=== PATIENT | female | born 1985 | race Caucasian/White ===

== ENCOUNTER 2019-07-30 14:36 | Inpatient (IN) | payer OTHER ==
[2019-07-30] VITALS (7 sets, daily range): BP systolic 104–129; BP diastolic 63–71
[~2019-07-30] VITALS: Ht 165.1 cm; Wt 105.2 kg
[2019-07-30] MEDS: IV RINGERS,LACTATED 1000ML 1,000 ML IV SCH (14:35)
[~2019-07-30 14:36] MED LIST: IBUP-1060 PO; PREN1TAB58 PO
[2019-07-30] MEDS ORDERED: SUCCINYLCHOLINE 200 MG/10 ML VIAL. ONE (14:42)
[2019-07-30] MEDS ORDERED: ROCURONIUM 50 MG/5 ML VIAL. ONE (14:43)
[2019-07-30] MEDS ORDERED: fentaNYL PF VIAL 100 MCG/2 ML VIAL ONE (14:43)
[2019-07-30] MEDS ORDERED: FAMOTIDINE 20 MG/2 ML VIAL ONE (14:44)
[2019-07-30] MEDS ORDERED: PROPOFOL 10 MG/ML (20ML) VIAL. IV ONE (14:44)
[2019-07-30] MEDS ORDERED: LIDOCAINE 2% PF 5 ML VIAL. ONE ×2 (14:44→16:21)
[2019-07-30] MEDS ORDERED: DESFLURANE 61 TO 120 MINUTES IH ONE (14:44)
[2019-07-30] MEDS ORDERED: KETOROLAC 30 MG/ML VIAL. ONE (14:44)
[2019-07-30] MEDS ORDERED: DEXAMETHASONE SOD PHOS 20 MG/5 ML VIAL. ONE (14:44)
[2019-07-30] MEDS ORDERED: ONDANSETRON PF 4 MG/2 ML VIAL. ONE (14:46)
--- NOTE | 2019-07-30 14:49 | PDOC2 ---
CONSULT Date of Consult Date of Consult DATE: 07/30/19 TIME: 14:39 Reason for Consult Reason for Consult: small bowel obstruction Referring Physician Referring Physician: Dr Ace Identification/Chief Complaint Chief Complaint abdominal pain, nausea, vomiting Source Source: Chart review, Patient History of Present Illness Reason for Visit: Daxa is a 33 yo obese female who has had abdominal pain, nausea and vomiting for the last few days. She has had a l/s cholecystectomy and umbilical hernia repair in the past. CT done at the [facility] ED showed an umbilical hernia creating a small bowel obstruction Past Medical History Pulmonary: Asthma GI: GERD Renal/: No pertinent hx Past Surgical History Past Surgical History: Cholecystectomy, Hernia Repair Current Medications Current Medications Active Scripts Active Ibuprofen 800 Mg Tablet 800 Mg PO PRN Q8HRS PRN Reported Vitamins ( Vits W-Ca,Fe,Fa(<1MG)) 1 Each Tablet 1 Tab PO DAILY Allergies Allergies: Coded Allergies: No Known Drug Allergies (Unverified , 06/06/14) ROS Review of System negative with exception of present complaints Physical Exam General: Alert, No acute distress HEENT: Atraumatic, Other (poor dental repair, epistaxis from attempted NG placement) Lungs: Normal air movement Heart: Regular rate Abdomen: Other (obese, soft, there is a tender, non reducible fullness at and just above the umbilicus, well healed l/s scars from elias (remote)) Extremities: No clubbing Skin: Other Labs Labs from [facility] Images Images CT done in [facility] ED is reviewed Assessment/Plan Assessment/Plan small bowel obstruction 2/2 incarcerated recurrent umbilical hernia to OR for repair, release SBO, possible SBR discussed risks of procedure with Dominga including but not limited to bleeding, infection, recurrence, anastomotic leak, umbilectomy\ she will proceed Thanks for consult SHOAIB SOLIMAN MD Jul 30, 2019 14:49
[2019-07-30] MEDS ORDERED: HYDROmorphone 2 MG/ML VIAL IV PRN ×2 (15:00→16:45)
[2019-07-30] MEDS ORDERED: ceFAZolin SODIUM 3 GM in IV DEXTROSE 5% 100ML 100 ML IV PRN (15:00)
[2019-07-30] MEDS ORDERED: fentaNYL PF VIAL 100 MCG/2 ML VIAL IV PRN (15:00)
[2019-07-30] MEDS ORDERED: ONDANSETRON PF 4 MG/2 ML VIAL. IVP PRN ×2 (15:00→16:45)
[2019-07-30] MEDS ORDERED: MORPHINE SULFATE 2 MG/ML VIAL. IV PRN (15:00)
[2019-07-30] MEDS ORDERED: PROCHLORPERAZINE 10 MG/2 ML VIAL. IV PRN (15:00)
[2019-07-30] MEDS ORDERED: diphenhydrAMINE 50 MG/ML VIAL IV PRN (15:00)
[2019-07-30] MEDS ORDERED: ceFAZolin SODIUM IV Push 1 GM VIAL. IVP ONE ×3 (15:07)
[2019-07-30] MEDS ORDERED: METOPROLOL TARTRATE 5 MG/5 ML VIAL. IVP ONE (15:35)
[2019-07-30] MEDS ORDERED: GLYCOPYRROLATE 1 MG/5 ML VIAL. ONE (15:38)
[2019-07-30] MEDS ORDERED: NEOSTIGMINE METHYLSULFATE 5 MG/5 ML SYRINGE. ONE (15:38)
[2019-07-30] MEDS ORDERED: IV NORMAL SALINE 1000ML BAG 1,000 ML IV SCH (16:39)
[2019-07-30] MEDS: POTASSIUM CL 20MEQ-0.45% NACL 1,000 ML IV SCH (16:39)
[2019-07-30] MEDS: fentaNYL PF VIAL 100 MCG/2 ML VIAL IV PRN ×2 (16:45→16:56)
[2019-07-30] MEDS ORDERED: BENZOCAINE/MENTHOL LOZENGE. PO PRN (16:45)
[2019-07-30] MEDS ORDERED: ENOXAPARIN 40 MG/0.4 ML SYRINGE. SQ SCH (16:45)
[2019-07-30] MEDS ORDERED: NALOXONE 0.4 MG/ML VIAL. IV PRN (16:45)
[2019-07-30] MEDS ORDERED: 0.9 % SODIUM CHLORIDE 10 ML DISP.SYRIN. IV PRN (16:45)
--- NOTE | 2019-07-30 16:54 | PDOC ---
BRIEF OPERATIVE NOTE Date: Jul 30, 2019 Pre-Op Diagnosis SBO 2/2 incarcerated recurrent VIH Post-Op Diagnosis same Procedure Performed primary repair of recurrent VIH, partial omentectomy Surgeon Terell Metal Expediter Aristides BECKWITH Anesthesia Type: General Blood Loss 00cc IV Fluid 1000cc Urine Output 100cc Specimens Obtained hernia sack and incarcerated contents Findings multi-loculated hernia sack with omentum, viable SB Complications none Operative Note Wk # [id number] SHOAIB SOLIMAN MD Jul 30, 2019 16:54
--- NOTE | 2019-07-30 17:14 | OP ---
DATE OF SURGERY: 07/30/2019 PREOPERATIVE DIAGNOSIS: Small bowel obstruction secondary to incarcerated recurrent ventral incisional hernia. POSTOPERATIVE DIAGNOSIS: Small bowel obstruction secondary to incarcerated recurrent ventral incisional hernia. PROCEDURE: Primary repair of recurrent ventral incisional hernia, partial omentectomy. SURGEON: Nathan Soliman MD EXTRACTOR PLANT OPERATOR: AMENA Holland ANESTHESIA: General endotracheal. ESTIMATED BLOOD LOSS: 100 mL. INTRAVENOUS FLUIDS: 1000 mL. URINE OUTPUT: 100 mL. INDICATIONS: The patient is a 33-year-old obese female with previous cholecystectomy and repair of a hernia just above her umbilicus. She had acute pain and fullness in the area and scan showed small bowel obstruction secondary to involvement with this hernia. She is brought for exploration and repair. OPERATIVE FINDINGS: A multiloculated hernia sac was present containing incarcerated omentum. The bowel had reduced spontaneously. When run from ileocecal valve proximally, the bowel appeared slightly distended, but viable. DESCRIPTION OF PROCEDURE: The patient brought to the operating suite, given a general endotracheal anesthetic. Bashir catheter placed to dependent drainage. Abdomen prepped and draped in usual sterile fashion. A vertical incision was started over the area of fullness and extending below the umbilicus to include the umbilicus and was then excised. The hernia sac was mobilized circumferentially and carefully opened. We set about reducing the incarcerated contents by resection of the omentum or cautery division of the adhesions, allowing the remaining omentum to reduce back into the abdomen. Small bowel was run and found to be viable. The hernia sac was excised circumferentially. The fascial defect was closed in running fashion using #1 looped PDS tied in the middle. A second row of 0 Vicryl was used to reinforce the repair. Correct sponge count had been obtained prior to closing the incision. A 19-English round Nicola drain was brought through a lateral stab wound, sewn to the skin with a silk stitch and left in the subcutaneous space for postoperative drainage. Incision closed with a subcuticular 4-0 Monocryl. Sterile dressing applied. Abdominal binder placed. The patient awakened and recovered in OR #3 due to pending results of her COVID-19 testing. NATHAN SOLIMAN MD DR: SAM/sebastian JOB#: [id number] / [id number] AICHA Gann MD
[2019-07-30] MEDS: PHENOL ORAL SPRAY 177ML BOTTLE. PO PRN (18:10)
[2019-07-30] MEDS ORDERED: BUDE10.26 INH (18:28)
[2019-07-30] MEDS ORDERED: LORA-627 PO (18:28)
[2019-07-31] MEDS: IV RINGERS,LACTATED 1000ML 1,000 ML IV SCH (01:00)
[2019-07-31] MEDS: POTASSIUM CL 20MEQ-0.45% NACL 1,000 ML IV SCH ×3 (02:39→23:03)
[2019-07-31 03:00] VITALS: BP 120/70
[2019-07-31 07:00] VITALS: BP 129/71
[2019-07-31] MEDS: ENOXAPARIN 40 MG/0.4 ML SYRINGE. SQ SCH (08:25)
[2019-07-31 11:00] VITALS: BP 148/77
--- NOTE | 2019-07-31 12:16 | PDOC ---
SURGICAL PROGRESS NOTE Subjective adequate pain control asking for liquids Vital Signs Vital Signs Date Time Temp Pulse Resp B/P (MAP) Pulse Ox O2 Delivery O2 Flow Rate FiO2 07/31/19 11:00 98.2 80 16 148/77 (100) 96 Room Air 98.2 07/31/19 08:00 2.0 I&O Intake and Output 07/31/19 07:00 Intake Total 1100 ml Output Total 1475 ml Balance -375 ml Intake Oral 0 ml IV Total 1100 ml Output Urine Total 1375 ml Estimated Blood Loss 100 ml PATIENT HAS A CAMARA: No General: Alert HEENT: Other (NG with bilious return) Abdomen: Soft Assessment/Plan POD 1 ambulate NG trial in AM Justicifation of Admission Dx: Justifications for Admission: Justification of Admission Dx: Comment: (incarcerated umbilical hernia) SHOAIB SOLIMAN MD Jul 31, 2019 12:16
--- NOTE | 2019-07-31 12:38 | HP ---
ADMIT DATE: 07/31/2019 CHIEF COMPLAINT: Incarcerated hernia. HISTORY OF PRESENT ILLNESS: The patient is a pleasant middle-aged female who had an incarcerated hernia last night. She was taken emergently for surgery this morning. She is being examined in the medical floor where she has an NG to suction. PAST MEDICAL HISTORY: Allergic rhinitis. ALLERGIES: None. FAMILY HISTORY: Diabetes. SOCIAL HISTORY: She does not drink, smoke or take drugs. MEDICATIONS: Reviewed. Please refer to the MRAD. REVIEW OF SYSTEMS: GENERAL: No history of weight change, weakness or fevers. SKIN: No bruising, hair changes or rashes. EYES: No blurred, double or loss of vision. NOSE AND THROAT: No history of nosebleeds, hoarseness or sore throat. HEART: No history of palpitations, chest pain or shortness of breath on exertion. LUNGS: Denies cough, hemoptysis, wheezing or shortness of breath. GASTROINTESTINAL: She complains of abdominal discomfort. GENITOURINARY: No history of frequency, urgency, hesitancy or nocturia. NEUROLOGIC: Denies history of numbness, tingling, tremor or weakness. PSYCHIATRIC: No history of panic, anxiety or depression. ENDOCRINE: No history of heat or cold intolerance, polyuria or polydipsia. EXTREMITIES: Denies muscle weakness, joint pain, pain on walking or stiffness. PHYSICAL EXAMINATION: PHYSICAL EXAMINATION: VITALS: Within normal limits and are stable. GENERAL: No apparent distress. Alert and oriented. HEENT: She has an NG to suction. EYES: Extraocular muscles are intact, pupils are equally round and reactive to light and accommodation. MUSCULOSKELETAL: Well developed, well nourished, good range of motion. ENDOCRINE: No thyromegaly was palpated. LYMPHATICS: No cervical chain or axillary nodes were noted. HEMATOPOIETIC: No bruising. NECK: Supple, no JVD, no thyromegaly was noted. LUNGS: Clear to auscultation in all lung marmolejo without rhonchi or wheezing. HEART: RRR, S1, S2 present. Peripheral pulses intact, no obvious murmurs were noted. GASTROINTESTINAL: She has clean, dry and intact dressings. EXTREMITIES: Without any cyanosis, clubbing, or edema. Pedal pulses intact, Homans sign is negative. NEUROLOGIC: Normal speech, normal tone. A and O x 3, moves all extremities, no obvious focal deficits. PSYCHIATRIC: Normal affect, normal mood. Stable. SKIN: No ulcerations or rashes, good skin turgor, no jaundice. VASCULAR: Good capillary refill, neurovascular bundle appears to be intact. LABORATORY DATA: Pending. ASSESSMENT AND PLAN: Postoperative day 1, incarcerated umbilical hernia repair. We will check a CBC, BMP. Home meds, deep venous thrombosis prophylaxis. Full code, wound care. I appreciate Dr. Figueredo's rapid intervention. LETTY CHERRY DO DR: BOB/sebastian JOB#: [id number] / [id number]
[2019-07-31] MEDS: PHENOL ORAL SPRAY 177ML BOTTLE. PO PRN (14:02)
[2019-07-31 15:00] VITALS: BP 127/81
[2019-07-31 19:00] VITALS: BP 155/93
[2019-07-31 23:00] VITALS: BP 154/97
[2019-08-01 03:00] VITALS: BP 177/99
[2019-08-01 05:20] LABS: BASO # 0.1 x10^3/uL (0.0-0.2); BASO % 1 % (0-3); EOS # 0.1 x10^3/uL (0.0-0.7); EOS % 1 % (0-3); HEMOGLOBIN 13.9 g/dL (12.0-15.5); LYMPH # 1.9 x10^3/uL (1.0-4.8); LYMPH % 20 % (24-48); MEAN CORPUSCULAR HEMOGLOBIN 28 pg (25-35); MEAN CORPUSCULAR HGB CONC 34 g/dL (31-37); MEAN CORPUSCULAR VOLUME 82 fL (79-100); MONO # 1.1 x10^3/uL (0.0-1.1); MONO % 12 % (0-9); NEUT # 6.7 x10^3/uL (1.8-7.7); NEUT % 68 % (31-73); PLATELET COUNT 298 x10^3/uL (140-400); RED BLOOD COUNT 4.99 x10^6/uL (3.50-5.40); WHITE BLOOD COUNT 9.9 x10^3/uL (4.0-11.0)
[2019-08-01 05:43] LABS: CALCIUM 8.1 mg/dL (8.5-10.1); CREATININE 0.6 mg/dL (0.6-1.0); GFR 113.8; POTASSIUM 3.5 mmol/L (3.5-5.1)
[2019-08-01 07:08] VITALS: BP 181/98
--- NOTE | 2019-08-01 08:14 | PDOC ---
PROGRESS NOTES Chief Complaint Chief Complaint A/P: SBO Allergic rhinitis Moderate persistent asthma - on symbicort and prn albuterol Obesity Leukocytosis Hyponatremia Incarcerated periumbilical abdominal wall hernia containing a loop of the distal ileum Nonobstructing right renal calculi. Mild right renal hydronephrosis due to ureteropelvic junction obstruction, stable to prior imaging. History of Present Illness History of Present Illness Ms Trejo is a 33 yo F w/ PMHx obesity who came to [facility] ED on 07/29 c/o abdominal pain, nausea and vomiting for the last few days. She has had a l/s cholecystectomy and umbilical hernia repair in the past. CT done at the [facility] ED showed an umbilical hernia creating a small bowel obstruction. 07/30: To OR for Primary repair of recurrent ventral incisional hernia, partial omentectomy. Afebrile overnight. Advance to clears this morning. No BM as of yet she is a little short of breath and wheezing. Improved with her as needed albuterol. Vitals Vitals Vital Signs Date Time Temp Pulse Resp B/P (MAP) Pulse Ox O2 Delivery O2 Flow Rate FiO2 08/01/19 07:08 97.7 90 16 181/98 (125) 96 Room Air 97.7 07/31/19 20:00 2.0 Physical Exam General: Alert Heart: Regular rate Abdomen: Soft Extremities: No clubbing Skin: Other Labs LABS Laboratory Tests Test 08/01/19 04:30 White Blood Count 9.9 x10^3/uL (4.0-11.0) Red Blood Count 4.99 x10^6/uL (3.50-5.40) Hemoglobin 13.9 g/dL (12.0-15.5) Hematocrit 41.0 % (36.0-47.0) Mean Corpuscular Volume 82 fL (79-100) Mean Corpuscular Hemoglobin 28 pg (25-35) Mean Corpuscular Hemoglobin Concent 34 g/dL (31-37) Red Cell Distribution Width 14.0 % (11.5-14.5) Platelet Count 298 x10^3/uL (140-400) Neutrophils (%) (Auto) 68 % (31-73) Lymphocytes (%) (Auto) 20 % (24-48) Monocytes (%) (Auto) 12 % (0-9) Eosinophils (%) (Auto) 1 % (0-3) Basophils (%) (Auto) 1 % (0-3) Neutrophils # (Auto) 6.7 x10^3/uL (1.8-7.7) Lymphocytes # (Auto) 1.9 x10^3/uL (1.0-4.8) Monocytes # (Auto) 1.1 x10^3/uL (0.0-1.1) Eosinophils # (Auto) 0.1 x10^3/uL (0.0-0.7) Basophils # (Auto) 0.1 x10^3/uL (0.0-0.2) Sodium Level 137 mmol/L (136-145) Potassium Level 3.5 mmol/L (3.5-5.1) Chloride Level 99 mmol/L (98-107) Carbon Dioxide Level 28 mmol/L (21-32) Anion Gap 10 (6-14) Blood Urea Nitrogen 21 mg/dL (7-20) Creatinine 0.6 mg/dL (0.6-1.0) Estimated GFR (Cockcroft-Gault) 113.8 Glucose Level 85 mg/dL (70-99) Calcium Level 8.1 mg/dL (8.5-10.1) Comment Review of Relevant I have reviewed the following items nusrat (where applicable) has been applied. Labs Laboratory Tests Test 08/01/19 04:30 White Blood Count 9.9 x10^3/uL (4.0-11.0) Red Blood Count 4.99 x10^6/uL (3.50-5.40) Hemoglobin 13.9 g/dL (12.0-15.5) Hematocrit 41.0 % (36.0-47.0) Mean Corpuscular Volume 82 fL (79-100) Mean Corpuscular Hemoglobin 28 pg (25-35) Mean Corpuscular Hemoglobin Concent 34 g/dL (31-37) Red Cell Distribution Width 14.0 % (11.5-14.5) Platelet Count 298 x10^3/uL (140-400) Neutrophils (%) (Auto) 68 % (31-73) Lymphocytes (%) (Auto) 20 % (24-48) Monocytes (%) (Auto) 12 % (0-9) Eosinophils (%) (Auto) 1 % (0-3) Basophils (%) (Auto) 1 % (0-3) Neutrophils # (Auto) 6.7 x10^3/uL (1.8-7.7) Lymphocytes # (Auto) 1.9 x10^3/uL (1.0-4.8) Monocytes # (Auto) 1.1 x10^3/uL (0.0-1.1) Eosinophils # (Auto) 0.1 x10^3/uL (0.0-0.7) Basophils # (Auto) 0.1 x10^3/uL (0.0-0.2) Sodium Level 137 mmol/L (136-145) Potassium Level 3.5 mmol/L (3.5-5.1) Chloride Level 99 mmol/L (98-107) Carbon Dioxide Level 28 mmol/L (21-32) Anion Gap 10 (6-14) Blood Urea Nitrogen 21 mg/dL (7-20) Creatinine 0.6 mg/dL (0.6-1.0) Estimated GFR (Cockcroft-Gault) 113.8 Glucose Level 85 mg/dL (70-99) Calcium Level 8.1 mg/dL (8.5-10.1) Laboratory Tests Test 08/01/19 04:30 White Blood Count 9.9 x10^3/uL (4.0-11.0) Red Blood Count 4.99 x10^6/uL (3.50-5.40) Hemoglobin 13.9 g/dL (12.0-15.5) Hematocrit 41.0 % (36.0-47.0) Mean Corpuscular Volume 82 fL (79-100) Mean Corpuscular Hemoglobin 28 pg (25-35) Mean Corpuscular Hemoglobin Concent 34 g/dL (31-37) Red Cell Distribution Width 14.0 % (11.5-14.5) Platelet Count 298 x10^3/uL (140-400) Neutrophils (%) (Auto) 68 % (31-73) Lymphocytes (%) (Auto) 20 % (24-48) Monocytes (%) (Auto) 12 % (0-9) Eosinophils (%) (Auto) 1 % (0-3) Basophils (%) (Auto) 1 % (0-3) Neutrophils # (Auto) 6.7 x10^3/uL (1.8-7.7) Lymphocytes # (Auto) 1.9 x10^3/uL (1.0-4.8) Monocytes # (Auto) 1.1 x10^3/uL (0.0-1.1) Eosinophils # (Auto) 0.1 x10^3/uL (0.0-0.7) Basophils # (Auto) 0.1 x10^3/uL (0.0-0.2) Sodium Level 137 mmol/L (136-145) Potassium Level 3.5 mmol/L (3.5-5.1) Chloride Level 99 mmol/L (98-107) Carbon Dioxide Level 28 mmol/L (21-32) Anion Gap 10 (6-14) Blood Urea Nitrogen 21 mg/dL (7-20) Creatinine 0.6 mg/dL (0.6-1.0) Estimated GFR (Cockcroft-Gault) 113.8 Glucose Level 85 mg/dL (70-99) Calcium Level 8.1 mg/dL (8.5-10.1) Medications Current Medications Succinylcholine Chloride (Anectine) 200 mg STK-MED ONCE .ROUTE ; Start 07/30/19 at 14:42; Stop 07/30/19 at 14:43; Status DC Rocuronium [place] (Zemuron) 50 mg STK-MED ONCE .ROUTE ; Start 07/30/19 at 14:43; Stop 07/30/19 at 14:43; Status DC Fentanyl Citrate (Fentanyl 2ml Vial) 100 mcg STK-MED ONCE .ROUTE ; Start 07/30/19 at 14:43; Stop 07/30/19 at 14:43; Status DC Desflurane (Suprane) 60 ml STK-MED ONCE IH ; Start 07/30/19 at 14:44; Stop 07/30/19 at 14:44; Status DC Dexamethasone Sodium Phosphate (Decadron) 20 mg STK-MED ONCE .ROUTE ; Start 07/30/19 at 14:44; Stop 07/30/19 at 14:44; Status DC Propofol (Diprivan) 200 mg STK-MED ONCE IV ; Start 07/30/19 at 14:44; Stop 07/30/19 at 14:44; Status DC Lidocaine HCl (Lidocaine Pf 2% Vial) 5 ml STK-MED ONCE .ROUTE ; Start 07/30/19 at 14:44; Stop 07/30/19 at 14:44; Status DC Ketorolac Tromethamine (Toradol 30mg Vial) 30 mg STK-MED ONCE .ROUTE ; Start 07/30/19 at 14:44; Stop 07/30/19 at 14:44; Status DC Famotidine (Pepcid Vial) 20 mg STK-MED ONCE .ROUTE ; Start 07/30/19 at 14:44; Stop 07/30/19 at 14:44; Status DC Ondansetron HCl (Zofran) 4 mg STK-MED ONCE .ROUTE ; Start 07/30/19 at 14:46; Stop 07/30/19 at 14:46; Status DC Cefazolin Sodium 3 gm/Dextrose 100 ml @ 200 mls/hr 1X PREOP PRN IV protocol Last administered on 07/30/19at 15:00; Start 07/30/19 at 15:00; Stop 07/30/19 at 15:10; Status DC Fentanyl Citrate (Fentanyl 2ml Vial) 25 mcg PRN Q5MIN PRN IV MILD PAIN 1-3; Start 07/30/19 at 15:00; Stop 07/30/19 at 18:16; Status DC Fentanyl Citrate (Fentanyl 2ml Vial) 50 mcg PRN Q5MIN PRN IV MODERATE TO SEVERE PAIN Last administered on 07/30/19at 16:56; Start 07/30/19 at 15:00; Stop 07/30/19 at 18:16; Status DC Morphine Sulfate (Morphine Sulfate) 2 mg PRN Q10MIN PRN IV MILD PAIN 1-3; Start 07/30/19 at 15:00; Stop 07/30/19 at 18:16; Status DC Hydromorphone HCl (Dilaudid) 0.2 mg PRN Q10MIN PRN IV MILD PAIN 1-3; Start 07/30/19 at 15:00; Stop 07/30/19 at 18:16; Status DC Ondansetron HCl (Zofran) 4 mg PRN Q6HRS PRN IVP Nausea, 1st Choice; Start 07/30/19 at 15:00; Stop 07/30/19 at 18:17; Status DC Diphenhydramine HCl (Benadryl) 12.5 mg PRN Q4HRS PRN IV Nausea/Vomiting, 1st Choice; Start 07/30/19 at 15:00; Stop 07/30/19 at 18:16; Status DC Prochlorperazine Edisylate (Compazine) 5 mg PRN Q6HRS PRN IV Nausea/Vomiting, 1st Choice; Start 07/30/19 at 15:00; Stop 07/30/19 at 18:16; Status DC Ringer's Solution 1,000 ml @ 100 mls/hr Q10H IV Last administered on 07/30/19at 14:35; Start 07/30/19 at 15:00; Stop 07/31/19 at 11:39; Status DC Cefazolin Sodium (Ancef) 1 gm STK-MED ONCE IVP ; Start 07/30/19 at 15:07; Stop 07/30/19 at 15:08; Status DC Cefazolin Sodium (Ancef) 1 gm STK-MED ONCE IVP ; Start 07/30/19 at 15:07; Stop 07/30/19 at 15:08; Status DC Cefazolin Sodium (Ancef) 1 gm STK-MED ONCE IVP ; Start 07/30/19 at 15:07; Stop 07/30/19 at 15:08; Status DC Metoprolol Tartrate (Lopressor Vial) 5 mg STK-MED ONCE IVP ; Start 07/30/19 at 15:35; Stop 07/30/19 at 15:35; Status DC Neostigmine [place] (Neostigmine Methylsulfate) 5 mg STK-MED ONCE .ROUTE ; Start 07/30/19 at 15:38; Stop 07/30/19 at 15:38; Status DC Glycopyrrolate (Robinul) 1 mg STK-MED ONCE .ROUTE ; Start 07/30/19 at 15:38; Stop 07/30/19 at 15:39; Status DC Lidocaine HCl (Lidocaine Pf 2% Vial) 5 ml STK-MED ONCE .ROUTE ; Start 07/30/19 at 16:21; Stop 07/30/19 at 16:21; Status DC Enoxaparin Sodium (Lovenox 40mg Syringe) 40 mg Q24H SQ ; Start 07/30/19 at 16:45; Stop 07/30/19 at 17:34; Status DC Sodium Chloride (Normal Saline Flush) 3 ml QSHIFT PRN IV AFTER MEDS AND BLOOD DRAWS; Start 07/30/19 at 16:45 Potassium Chloride/Sodium Chloride 1,000 ml @ 100 mls/hr Q10H IV Last administered on 07/31/19at 23:03; Start 07/30/19 at 16:39 Naloxone HCl (Narcan) 0.4 mg PRN Q2MIN PRN IV SEE INSTRUCTIONS; Start 07/30/19 at 16:45 Sodium Chloride 1,000 ml @ 25 mls/hr Q24H IV ; Start 07/30/19 at 16:39; Stop 07/30/19 at 18:16; Status DC Hydromorphone HCl (Dilaudid) 1 mg Q4HRS PRN IV PAIN Last administered on 07/31/19at 06:54; Start 07/30/19 at 16:45 Ondansetron HCl (Zofran) 4 mg PRN Q6HRS PRN IVP NAUESA, 1ST CHOICE; Start 07/30/19 at 16:45 Phenol (Chloraseptic) 1 spray PRN Q2HR PRN PO SORE THROAT Last administered on 07/31/19at 14:02; Start 07/30/19 at 16:45 Throat Lozenges (Cepacol Sore Throat Lozenge) 1 park PRN Q2HRS PRN PO SORE THROAT Last administered on 07/31/19at 14:02; Start 07/30/19 at 16:45 Enoxaparin Sodium (Lovenox 40mg Syringe) 40 mg Q24H SQ Last administered on 07/31/19at 08:25; Start 07/31/19 at 09:00 Active Scripts Active Reported Claritin-D 24 Hour Tablet (Loratadine/Pseudoephedrine) 1 Each Tab.er.24h 1 Tab PO DAILY 10 Days Budesonide-Formoterol 160-4.5 (Budesonide/Formoterol Fumarate) 10.2 Gm Hfa.aer.ad 2 Puff INH BID Vitals/I & O Vital Sign - Last 24 Hours 07/31/19 07/31/19 07/31/19 07/31/19 11:00 15:00 19:00 20:00 Temp 98.2 97.5 98.6 98.2 97.5 98.6 Pulse 80 94 103 Resp 16 18 18 B/P (MAP) 148/77 (100) 127/81 (96) 155/93 (113) Pulse Ox 96 97 95 O2 Delivery Room Air Room Air Room Air Nasal Cannula O2 Flow Rate 2.0 07/31/19 08/01/19 08/01/19 23:00 03:00 07:08 Temp 98.2 98.9 97.7 98.2 98.9 97.7 Pulse 96 96 90 Resp 16 B/P (MAP) 154/97 (116) 177/99 (125) 181/98 (125) Pulse Ox 98 98 96 O2 Delivery Room Air Room Air Room Air Intake and Output 07/31/19 07/31/19 08/01/19 14:59 22:59 06:59 Intake Total 0 ml 0 ml 0 ml Output Total 425 ml Balance 0 ml -425 ml 0 ml JIMBO CHANEY MD Aug 01, 2019 08:14
[2019-08-01] MEDS: ENOXAPARIN 40 MG/0.4 ML SYRINGE. SQ SCH (08:25)
[2019-08-01] MEDS: FAMOTIDINE 20 MG/2 ML VIAL IVP SCH ×2 (08:26→21:55)
[2019-08-01] MEDS: POTASSIUM CL 20MEQ-0.45% NACL 1,000 ML IV SCH ×2 (08:29→15:41)
--- NOTE | 2019-08-01 09:48 | PDOC ---
CLIVE FOX LUMBER DRIVER 08/01/19 0948: SURGICAL PROGRESS NOTE Subjective wants liquids + flatus NG clamped x 4 hrs Vital Signs Vital Signs Date Time Temp Pulse Resp B/P (MAP) Pulse Ox O2 Delivery O2 Flow Rate FiO2 08/01/19 08:00 Room Air 08/01/19 07:08 97.7 90 16 181/98 (125) 96 97.7 07/31/19 20:00 2.0 I&O Intake and Output 08/01/19 07:00 Intake Total 0 ml Output Total 425 ml Balance -425 ml Intake Oral 0 ml Output Urine Total 410 ml Drainage Total 15 ml # Voids 1 # Bowel Movements 2 General: Alert, Oriented X3, Cooperative HEENT: Other (NG residual <100cc) Abdomen: Soft, Other (dressing dry, drain serosang) Labs Laboratory Tests Test 08/01/19 04:30 White Blood Count 9.9 x10^3/uL (4.0-11.0) Red Blood Count 4.99 x10^6/uL (3.50-5.40) Hemoglobin 13.9 g/dL (12.0-15.5) Hematocrit 41.0 % (36.0-47.0) Mean Corpuscular Volume 82 fL (79-100) Mean Corpuscular Hemoglobin 28 pg (25-35) Mean Corpuscular Hemoglobin Concent 34 g/dL (31-37) Red Cell Distribution Width 14.0 % (11.5-14.5) Platelet Count 298 x10^3/uL (140-400) Neutrophils (%) (Auto) 68 % (31-73) Lymphocytes (%) (Auto) 20 % (24-48) Monocytes (%) (Auto) 12 % (0-9) Eosinophils (%) (Auto) 1 % (0-3) Basophils (%) (Auto) 1 % (0-3) Neutrophils # (Auto) 6.7 x10^3/uL (1.8-7.7) Lymphocytes # (Auto) 1.9 x10^3/uL (1.0-4.8) Monocytes # (Auto) 1.1 x10^3/uL (0.0-1.1) Eosinophils # (Auto) 0.1 x10^3/uL (0.0-0.7) Basophils # (Auto) 0.1 x10^3/uL (0.0-0.2) Sodium Level 137 mmol/L (136-145) Potassium Level 3.5 mmol/L (3.5-5.1) Chloride Level 99 mmol/L (98-107) Carbon Dioxide Level 28 mmol/L (21-32) Anion Gap 10 (6-14) Blood Urea Nitrogen 21 mg/dL (7-20) Creatinine 0.6 mg/dL (0.6-1.0) Estimated GFR (Cockcroft-Gault) 113.8 Glucose Level 85 mg/dL (70-99) Calcium Level 8.1 mg/dL (8.5-10.1) Laboratory Tests Test 08/01/19 04:30 White Blood Count 9.9 x10^3/uL (4.0-11.0) Red Blood Count 4.99 x10^6/uL (3.50-5.40) Hemoglobin 13.9 g/dL (12.0-15.5) Hematocrit 41.0 % (36.0-47.0) Mean Corpuscular Volume 82 fL (79-100) Mean Corpuscular Hemoglobin 28 pg (25-35) Mean Corpuscular Hemoglobin Concent 34 g/dL (31-37) Red Cell Distribution Width 14.0 % (11.5-14.5) Platelet Count 298 x10^3/uL (140-400) Neutrophils (%) (Auto) 68 % (31-73) Lymphocytes (%) (Auto) 20 % (24-48) Monocytes (%) (Auto) 12 % (0-9) Eosinophils (%) (Auto) 1 % (0-3) Basophils (%) (Auto) 1 % (0-3) Neutrophils # (Auto) 6.7 x10^3/uL (1.8-7.7) Lymphocytes # (Auto) 1.9 x10^3/uL (1.0-4.8) Monocytes # (Auto) 1.1 x10^3/uL (0.0-1.1) Eosinophils # (Auto) 0.1 x10^3/uL (0.0-0.7) Basophils # (Auto) 0.1 x10^3/uL (0.0-0.2) Sodium Level 137 mmol/L (136-145) Potassium Level 3.5 mmol/L (3.5-5.1) Chloride Level 99 mmol/L (98-107) Carbon Dioxide Level 28 mmol/L (21-32) Anion Gap 10 (6-14) Blood Urea Nitrogen 21 mg/dL (7-20) Creatinine 0.6 mg/dL (0.6-1.0) Estimated GFR (Cockcroft-Gault) 113.8 Glucose Level 85 mg/dL (70-99) Calcium Level 8.1 mg/dL (8.5-10.1) Assessment/Plan s/p VIH minimal NG residual, some flatus--NG dcd--trial clears Justicifation of Admission Dx: Justifications for Admission: Justification of Admission Dx: Comment: (incarcerated umbilical hernia) SHOAIB SOLIMAN MD 08/01/19 1243: SURGICAL PROGRESS NOTE Assessment/Plan pt seen as above start clears possible home tomorrow CLIVE FOX APRN Aug 01, 2019 09:48 SHOAIB SOLIMAN MD Aug 01, 2019 12:43
[2019-08-01 10:44] VITALS: BP 165/97
[2019-08-01] MEDS ORDERED: ALBUTEROL SULFATE 2.5 MG/3 ML NEBU. NEB SCH (12:00)
[2019-08-01] MEDS: ALBUTEROL SULFATE 2.5 MG/3 ML NEBU. NEB SCH ×3 (12:30→22:01)
[2019-08-01] MEDS: CETIRIZINE HCL 10 MG TABLET. PO SCH (12:34)
--- NOTE | 2019-08-01 12:40 | NUR ---
SW following. Discussed with RN, pt fro0m home, gets around fine, room air. Pt had NG removed - advanced to clear liquid diet. RN advised no SW needs at this time. SW will continue to follow.
[2019-08-01 14:31] VITALS: BP 128/91
[2019-08-01 19:00] VITALS: BP 117/73
[2019-08-01] MEDS: BUDESONIDE 0.5 MG/2 ML NEBU. NEB SCH (19:42)
[2019-08-01] MEDS ORDERED: [UNRECOGNIZED DRUG - OTHER] INH SCH (21:00)
[2019-08-01] MEDS ORDERED: MONTELUKAST SODIUM 10 MG TABLET. PO SCH (21:00)
[2019-08-01] MEDS ORDERED: BUDESONIDE INH SCH (21:00)
[2019-08-01] MEDS ORDERED: FORMOTEROL FUMARATE INH SCH (21:00)
[2019-08-01 23:00] VITALS: BP 114/73
[2019-08-02 03:00] VITALS: BP 110/72
[2019-08-02] MEDS: POTASSIUM CL 20MEQ-0.45% NACL 1,000 ML IV SCH (04:39)
[2019-08-02 05:48] LABS: BASO # 0.1 x10^3/uL (0.0-0.2); BASO % 1 % (0-3); EOS # 0.2 x10^3/uL (0.0-0.7); EOS % 2 % (0-3); HEMOGLOBIN 14.1 g/dL (12.0-15.5); LYMPH % 23 % (24-48); MEAN CORPUSCULAR HEMOGLOBIN 28 pg (25-35); MEAN CORPUSCULAR HGB CONC 34 g/dL (31-37); MEAN CORPUSCULAR VOLUME 82 fL (79-100); MONO # 1.2 x10^3/uL (0.0-1.1); MONO % 14 % (0-9); NEUT # 5.4 x10^3/uL (1.8-7.7); NEUT % 61 % (31-73); PLATELET COUNT 352 x10^3/uL (140-400); RED BLOOD COUNT 4.99 x10^6/uL (3.50-5.40); RED CELL DISTRIBUTION WIDTH 13.7 % (11.5-14.5); WHITE BLOOD COUNT 8.9 x10^3/uL (4.0-11.0)
[2019-08-02 06:16] LABS: CREATININE 0.6 mg/dL (0.6-1.0); GFR 113.8; POTASSIUM 3.3 mmol/L (3.5-5.1)
[2019-08-02 07:00] VITALS: BP_SYST 142; BP_SYST 17; BP_DIAS 50; BP_DIAS 82
[2019-08-02] MEDS: ALBUTEROL SULFATE 2.5 MG/3 ML NEBU. NEB SCH (07:23)
[2019-08-02] MEDS: BUDESONIDE 0.5 MG/2 ML NEBU. NEB SCH (07:24)
[2019-08-02] MEDS: CETIRIZINE HCL 10 MG TABLET. PO SCH (08:29)
[2019-08-02] MEDS: FAMOTIDINE 20 MG/2 ML VIAL IVP SCH (08:29)
[2019-08-02] MEDS: ENOXAPARIN 40 MG/0.4 ML SYRINGE. SQ SCH (08:33)
--- NOTE | 2019-08-02 08:53 | NUR ---
SW following. Discussed with RN, pt from home, clear liquid diet - has not had a BM. PT recommending home. SW will continue to follow.
--- NOTE | 2019-08-02 09:49 | PDOC ---
PROGRESS NOTES Chief Complaint Chief Complaint A/P: SBO Allergic rhinitis Moderate persistent asthma - on symbicort and prn albuterol Obesity Leukocytosis Hyponatremia Incarcerated periumbilical abdominal wall hernia containing a loop of the distal ileum Nonobstructing right renal calculi. Mild right renal hydronephrosis due to ureteropelvic junction obstruction, stable to prior imaging. History of Present Illness History of Present Illness Ms Trejo is a 33 yo F w/ PMHx obesity who came to [facility] ED on 07/29 c/o abdominal pain, nausea and vomiting for the last few days. She has had a l/s cholecystectomy and umbilical hernia repair in the past. CT done at the [facility] ED showed an umbilical hernia creating a small bowel obstruction. 07/30: To OR for Primary repair of recurrent ventral incisional hernia, partial omentectomy. 07/31: Afebrile overnight. Advance to clears this morning. No BM as of yet she is a little short of breath and wheezing. Improved with her as needed albuterol. Afebrile. No leukocytosis, K3.3. Slept well no overnight events. Tolerated liquid diet well, advanced per surgery, passing flatus. No dysuria no shortness of breath no chest pain no calf tenderness. Vitals Vitals Vital Signs Date Time Temp Pulse Resp B/P (MAP) Pulse Ox O2 Delivery O2 Flow Rate FiO2 08/02/19 07:30 Room Air 08/02/19 07:25 100 08/02/19 07:00 98.3 63 18 142/82 (102) 98.3 Physical Exam General: Alert, Oriented X3, Cooperative Heart: Regular rate Abdomen: Soft, Other (dressing dry, drain serosang) Extremities: No clubbing Skin: Other Labs LABS Laboratory Tests Test 08/02/19 04:03 White Blood Count 8.9 x10^3/uL (4.0-11.0) Red Blood Count 4.99 x10^6/uL (3.50-5.40) Hemoglobin 14.1 g/dL (12.0-15.5) Hematocrit 41.0 % (36.0-47.0) Mean Corpuscular Volume 82 fL (79-100) Mean Corpuscular Hemoglobin 28 pg (25-35) Mean Corpuscular Hemoglobin Concent 34 g/dL (31-37) Red Cell Distribution Width 13.7 % (11.5-14.5) Platelet Count 352 x10^3/uL (140-400) Neutrophils (%) (Auto) 61 % (31-73) Lymphocytes (%) (Auto) 23 % (24-48) Monocytes (%) (Auto) 14 % (0-9) Eosinophils (%) (Auto) 2 % (0-3) Basophils (%) (Auto) 1 % (0-3) Neutrophils # (Auto) 5.4 x10^3/uL (1.8-7.7) Lymphocytes # (Auto) 2.0 x10^3/uL (1.0-4.8) Monocytes # (Auto) 1.2 x10^3/uL (0.0-1.1) Eosinophils # (Auto) 0.2 x10^3/uL (0.0-0.7) Basophils # (Auto) 0.1 x10^3/uL (0.0-0.2) Sodium Level 134 mmol/L (136-145) Potassium Level 3.3 mmol/L (3.5-5.1) Chloride Level 98 mmol/L (98-107) Carbon Dioxide Level 25 mmol/L (21-32) Anion Gap 11 (6-14) Blood Urea Nitrogen 11 mg/dL (7-20) Creatinine 0.6 mg/dL (0.6-1.0) Estimated GFR (Cockcroft-Gault) 113.8 Glucose Level 98 mg/dL (70-99) Calcium Level 9.0 mg/dL (8.5-10.1) Comment Review of Relevant I have reviewed the following items nusrat (where applicable) has been applied. Labs Laboratory Tests Test 08/01/19 04:30 08/02/19 04:03 White Blood Count 9.9 x10^3/uL (4.0-11.0) 8.9 x10^3/uL (4.0-11.0) Red Blood Count 4.99 x10^6/uL (3.50-5.40) 4.99 x10^6/uL (3.50-5.40) Hemoglobin 13.9 g/dL (12.0-15.5) 14.1 g/dL (12.0-15.5) Hematocrit 41.0 % (36.0-47.0) 41.0 % (36.0-47.0) Mean Corpuscular Volume 82 fL (79-100) 82 fL (79-100) Mean Corpuscular Hemoglobin 28 pg (25-35) 28 pg (25-35) Mean Corpuscular Hemoglobin Concent 34 g/dL (31-37) 34 g/dL (31-37) Red Cell Distribution Width 14.0 % (11.5-14.5) 13.7 % (11.5-14.5) Platelet Count 298 x10^3/uL (140-400) 352 x10^3/uL (140-400) Neutrophils (%) (Auto) 68 % (31-73) 61 % (31-73) Lymphocytes (%) (Auto) 20 % (24-48) 23 % (24-48) Monocytes (%) (Auto) 12 % (0-9) 14 % (0-9) Eosinophils (%) (Auto) 1 % (0-3) 2 % (0-3) Basophils (%) (Auto) 1 % (0-3) 1 % (0-3) Neutrophils # (Auto) 6.7 x10^3/uL (1.8-7.7) 5.4 x10^3/uL (1.8-7.7) Lymphocytes # (Auto) 1.9 x10^3/uL (1.0-4.8) 2.0 x10^3/uL (1.0-4.8) Monocytes # (Auto) 1.1 x10^3/uL (0.0-1.1) 1.2 x10^3/uL (0.0-1.1) Eosinophils # (Auto) 0.1 x10^3/uL (0.0-0.7) 0.2 x10^3/uL (0.0-0.7) Basophils # (Auto) 0.1 x10^3/uL (0.0-0.2) 0.1 x10^3/uL (0.0-0.2) Sodium Level 137 mmol/L (136-145) 134 mmol/L (136-145) Potassium Level 3.5 mmol/L (3.5-5.1) 3.3 mmol/L (3.5-5.1) Chloride Level 99 mmol/L (98-107) 98 mmol/L (98-107) Carbon Dioxide Level 28 mmol/L (21-32) 25 mmol/L (21-32) Anion Gap 10 (6-14) 11 (6-14) Blood Urea Nitrogen 21 mg/dL (7-20) 11 mg/dL (7-20) Creatinine 0.6 mg/dL (0.6-1.0) 0.6 mg/dL (0.6-1.0) Estimated GFR (Cockcroft-Gault) 113.8 113.8 Glucose Level 85 mg/dL (70-99) 98 mg/dL (70-99) Calcium Level 8.1 mg/dL (8.5-10.1) 9.0 mg/dL (8.5-10.1) Laboratory Tests Test 08/02/19 04:03 White Blood Count 8.9 x10^3/uL (4.0-11.0) Red Blood Count 4.99 x10^6/uL (3.50-5.40) Hemoglobin 14.1 g/dL (12.0-15.5) Hematocrit 41.0 % (36.0-47.0) Mean Corpuscular Volume 82 fL (79-100) Mean Corpuscular Hemoglobin 28 pg (25-35) Mean Corpuscular Hemoglobin Concent 34 g/dL (31-37) Red Cell Distribution Width 13.7 % (11.5-14.5) Platelet Count 352 x10^3/uL (140-400) Neutrophils (%) (Auto) 61 % (31-73) Lymphocytes (%) (Auto) 23 % (24-48) Monocytes (%) (Auto) 14 % (0-9) Eosinophils (%) (Auto) 2 % (0-3) Basophils (%) (Auto) 1 % (0-3) Neutrophils # (Auto) 5.4 x10^3/uL (1.8-7.7) Lymphocytes # (Auto) 2.0 x10^3/uL (1.0-4.8) Monocytes # (Auto) 1.2 x10^3/uL (0.0-1.1) Eosinophils # (Auto) 0.2 x10^3/uL (0.0-0.7) Basophils # (Auto) 0.1 x10^3/uL (0.0-0.2) Sodium Level 134 mmol/L (136-145) Potassium Level 3.3 mmol/L (3.5-5.1) Chloride Level 98 mmol/L (98-107) Carbon Dioxide Level 25 mmol/L (21-32) Anion Gap 11 (6-14) Blood Urea Nitrogen 11 mg/dL (7-20) Creatinine 0.6 mg/dL (0.6-1.0) Estimated GFR (Cockcroft-Gault) 113.8 Glucose Level 98 mg/dL (70-99) Calcium Level 9.0 mg/dL (8.5-10.1) Medications Current Medications Succinylcholine Chloride (Anectine) 200 mg STK-MED ONCE .ROUTE ; Start 07/30/19 at 14:42; Stop 07/30/19 at 14:43; Status DC Rocuronium Concord (Zemuron) 50 mg STK-MED ONCE .ROUTE ; Start 07/30/19 at 14:43; Stop 07/30/19 at 14:43; Status DC Fentanyl Citrate (Fentanyl 2ml Vial) 100 mcg STK-MED ONCE .ROUTE ; Start 07/30/19 at 14:43; Stop 07/30/19 at 14:43; Status DC Desflurane (Suprane) 60 ml STK-MED ONCE IH ; Start 07/30/19 at 14:44; Stop 07/30/19 at 14:44; Status DC Dexamethasone Sodium Phosphate (Decadron) 20 mg STK-MED ONCE .ROUTE ; Start 07/30/19 at 14:44; Stop 07/30/19 at 14:44; Status DC Propofol (Diprivan) 200 mg STK-MED ONCE IV ; Start 07/30/19 at 14:44; Stop 07/30/19 at 14:44; Status DC Lidocaine HCl (Lidocaine Pf 2% Vial) 5 ml STK-MED ONCE .ROUTE ; Start 07/30/19 at 14:44; Stop 07/30/19 at 14:44; Status DC Ketorolac Tromethamine (Toradol 30mg Vial) 30 mg STK-MED ONCE .ROUTE ; Start 07/30/19 at 14:44; Stop 07/30/19 at 14:44; Status DC Famotidine (Pepcid Vial) 20 mg STK-MED ONCE .ROUTE ; Start 07/30/19 at 14:44; Stop 07/30/19 at 14:44; Status DC Ondansetron HCl (Zofran) 4 mg STK-MED ONCE .ROUTE ; Start 07/30/19 at 14:46; Stop 07/30/19 at 14:46; Status DC Cefazolin Sodium 3 gm/Dextrose 100 ml @ 200 mls/hr 1X PREOP PRN IV protocol Last administered on 07/30/19at 15:00; Start 07/30/19 at 15:00; Stop 07/30/19 at 15:10; Status DC Fentanyl Citrate (Fentanyl 2ml Vial) 25 mcg PRN Q5MIN PRN IV MILD PAIN 1-3; Start 07/30/19 at 15:00; Stop 07/30/19 at 18:16; Status DC Fentanyl Citrate (Fentanyl 2ml Vial) 50 mcg PRN Q5MIN PRN IV MODERATE TO SEVERE PAIN Last administered on 07/30/19at 16:56; Start 07/30/19 at 15:00; Stop 07/30/19 at 18:16; Status DC Morphine Sulfate (Morphine Sulfate) 2 mg PRN Q10MIN PRN IV MILD PAIN 1-3; Start 07/30/19 at 15:00; Stop 07/30/19 at 18:16; Status DC Hydromorphone HCl (Dilaudid) 0.2 mg PRN Q10MIN PRN IV MILD PAIN 1-3; Start 07/30/19 at 15:00; Stop 07/30/19 at 18:16; Status DC Ondansetron HCl (Zofran) 4 mg PRN Q6HRS PRN IVP Nausea, 1st Choice; Start 07/30/19 at 15:00; Stop 07/30/19 at 18:17; Status DC Diphenhydramine HCl (Benadryl) 12.5 mg PRN Q4HRS PRN IV Nausea/Vomiting, 1st Choice; Start 07/30/19 at 15:00; Stop 07/30/19 at 18:16; Status DC Prochlorperazine Edisylate (Compazine) 5 mg PRN Q6HRS PRN IV Nausea/Vomiting, 1st Choice; Start 07/30/19 at 15:00; Stop 07/30/19 at 18:16; Status DC Ringer's Solution 1,000 ml @ 100 mls/hr Q10H IV Last administered on 07/30/19at 14:35; Start 07/30/19 at 15:00; Stop 07/31/19 at 11:39; Status DC Cefazolin Sodium (Ancef) 1 gm STK-MED ONCE IVP ; Start 07/30/19 at 15:07; Stop 07/30/19 at 15:08; Status DC Cefazolin Sodium (Ancef) 1 gm STK-MED ONCE IVP ; Start 07/30/19 at 15:07; Stop 07/30/19 at 15:08; Status DC Cefazolin Sodium (Ancef) 1 gm STK-MED ONCE IVP ; Start 07/30/19 at 15:07; Stop 07/30/19 at 15:08; Status DC Metoprolol Tartrate (Lopressor Vial) 5 mg STK-MED ONCE IVP ; Start 07/30/19 at 15:35; Stop 07/30/19 at 15:35; Status DC Neostigmine Concord (Neostigmine Methylsulfate) 5 mg STK-MED ONCE .ROUTE ; Start 07/30/19 at 15:38; Stop 07/30/19 at 15:38; Status DC Glycopyrrolate (Robinul) 1 mg STK-MED ONCE .ROUTE ; Start 07/30/19 at 15:38; Stop 07/30/19 at 15:39; Status DC Lidocaine HCl (Lidocaine Pf 2% Vial) 5 ml STK-MED ONCE .ROUTE ; Start 07/30/19 at 16:21; Stop 07/30/19 at 16:21; Status DC Enoxaparin Sodium (Lovenox 40mg Syringe) 40 mg Q24H SQ ; Start 07/30/19 at 16:45; Stop 07/30/19 at 17:34; Status DC Sodium Chloride (Normal Saline Flush) 3 ml QSHIFT PRN IV AFTER MEDS AND BLOOD DRAWS; Start 07/30/19 at 16:45 Potassium Chloride/Sodium Chloride 1,000 ml @ 100 mls/hr Q10H IV Last administered on 08/01/19at 15:41; Start 07/30/19 at 16:39 Naloxone HCl (Narcan) 0.4 mg PRN Q2MIN PRN IV SEE INSTRUCTIONS; Start 07/30/19 at 16:45 Sodium Chloride 1,000 ml @ 25 mls/hr Q24H IV ; Start 07/30/19 at 16:39; Stop 07/30/19 at 18:16; Status DC Hydromorphone HCl (Dilaudid) 1 mg Q4HRS PRN IV PAIN Last administered on 07/31/19at 06:54; Start 07/30/19 at 16:45 Ondansetron HCl (Zofran) 4 mg PRN Q6HRS PRN IVP NAUESA, 1ST CHOICE; Start 07/30/19 at 16:45 Phenol (Chloraseptic) 1 spray PRN Q2HR PRN PO SORE THROAT Last administered on 07/31/19at 14:02; Start 07/30/19 at 16:45 Throat Lozenges (Cepacol Sore Throat Lozenge) 1 park PRN Q2HRS PRN PO SORE THROAT Last administered on 07/31/19at 14:02; Start 07/30/19 at 16:45 Enoxaparin Sodium (Lovenox 40mg Syringe) 40 mg Q24H SQ Last administered on 08/02/19at 08:33; Start 07/31/19 at 09:00 Famotidine (Pepcid Vial) 20 mg BID IVP Last administered on 08/02/19at 08:29; Start 08/01/19 at 09:00 Non-Formulary Medication (Budesonide/ Formoterol Fumarate (Budesonide-Formoterol 160-4.5)) 2 puff BID INH ; Start 08/01/19 at 21:00; Status UNV Cetirizine HCl (ZyrTEC) 10 mg DAILY PO Last administered on 08/02/19at 08:29; Start 08/01/19 at 12:00 Montelukast Sodium (Singulair) 10 mg QHS PO Last administered on 08/01/19at 21:55; Start 08/01/19 at 21:00 Albuterol Sulfate (Ventolin Neb Soln) 2.5 mg RTQID NEB ; Start 08/01/19 at 12:00; Stop 08/01/19 at 12:17; Status DC Budesonide (Pulmicort) 0.5 mg RTBID NEB Last administered on 08/02/19at 07:24; Start 08/01/19 at 20:00 Albuterol Sulfate (Ventolin Neb Soln) 2.5 mg Q6HRS NEB Last administered on 08/02/19at 07:23; Start 08/01/19 at 12:30 Active Scripts Active Reported Claritin-D 24 Hour Tablet (Loratadine/Pseudoephedrine) 1 Each Tab.er.24h 1 Tab PO DAILY 10 Days Budesonide-Formoterol 160-4.5 (Budesonide/Formoterol Fumarate) 10.2 Gm Hfa.aer.ad 2 Puff INH BID Vitals/I & O Vital Sign - Last 24 Hours 08/01/19 08/01/19 08/01/19 08/01/19 10:44 14:31 19:00 19:44 Temp 97.9 97.7 98.0 97.9 97.7 98.0 Pulse 97 102 99 Resp 17 20 18 B/P (MAP) 165/97 (119) 128/91 (103) 117/73 (88) Pulse Ox 96 96 99 95 O2 Delivery Room Air Room Air Room Air Room Air 08/01/19 08/01/19 08/02/19 08/02/19 20:00 23:00 03:00 07:00 Temp 98.0 98.5 98.3 98.0 98.5 98.3 Pulse 100 94 63 Resp 18 18 18 B/P (MAP) 114/73 (87) 110/72 (85) 142/82 (102) Pulse Ox 95 93 95 O2 Delivery Room Air Room Air Room Air Room Air 08/02/19 08/02/19 07:25 07:30 Pulse Ox 100 O2 Delivery Room Air Room Air Intake and Output 08/01/19 08/01/19 08/02/19 15:00 23:00 07:00 Intake Total 1100 ml Output Total 30 ml Balance 1100 ml -30 ml JIMBO CHANEY MD Aug 02, 2019 09:48
[2019-08-02] MEDS ORDERED: POTASSIUM BICARB 20 MEQ EFFERVESCENT TABLET. PO ONE (10:00)
--- NOTE | 2019-08-02 10:50 | PDOC ---
SURGICAL PROGRESS NOTE Subjective tolerating clears + flatus pain managed ambulating in room Vital Signs Vital Signs Date Time Temp Pulse Resp B/P (MAP) Pulse Ox O2 Delivery O2 Flow Rate FiO2 08/02/19 07:30 Room Air 08/02/19 07:25 100 08/02/19 07:00 98.3 63 18 142/82 (102) 98.3 I&O Intake and Output 08/02/19 07:00 Intake Total 1100 ml Output Total 30 ml Balance 1070 ml Intake Oral 1100 ml Drainage Total 30 ml # Voids 7 General: Alert, Oriented X3, Cooperative Abdomen: Soft, Other (Incision c/d/i, no erythema, drain serosang) Labs Laboratory Tests Test 08/01/19 04:30 08/02/19 04:03 White Blood Count 9.9 x10^3/uL (4.0-11.0) 8.9 x10^3/uL (4.0-11.0) Red Blood Count 4.99 x10^6/uL (3.50-5.40) 4.99 x10^6/uL (3.50-5.40) Hemoglobin 13.9 g/dL (12.0-15.5) 14.1 g/dL (12.0-15.5) Hematocrit 41.0 % (36.0-47.0) 41.0 % (36.0-47.0) Mean Corpuscular Volume 82 fL (79-100) 82 fL (79-100) Mean Corpuscular Hemoglobin 28 pg (25-35) 28 pg (25-35) Mean Corpuscular Hemoglobin Concent 34 g/dL (31-37) 34 g/dL (31-37) Red Cell Distribution Width 14.0 % (11.5-14.5) 13.7 % (11.5-14.5) Platelet Count 298 x10^3/uL (140-400) 352 x10^3/uL (140-400) Neutrophils (%) (Auto) 68 % (31-73) 61 % (31-73) Lymphocytes (%) (Auto) 20 % (24-48) 23 % (24-48) Monocytes (%) (Auto) 12 % (0-9) 14 % (0-9) Eosinophils (%) (Auto) 1 % (0-3) 2 % (0-3) Basophils (%) (Auto) 1 % (0-3) 1 % (0-3) Neutrophils # (Auto) 6.7 x10^3/uL (1.8-7.7) 5.4 x10^3/uL (1.8-7.7) Lymphocytes # (Auto) 1.9 x10^3/uL (1.0-4.8) 2.0 x10^3/uL (1.0-4.8) Monocytes # (Auto) 1.1 x10^3/uL (0.0-1.1) 1.2 x10^3/uL (0.0-1.1) Eosinophils # (Auto) 0.1 x10^3/uL (0.0-0.7) 0.2 x10^3/uL (0.0-0.7) Basophils # (Auto) 0.1 x10^3/uL (0.0-0.2) 0.1 x10^3/uL (0.0-0.2) Sodium Level 137 mmol/L (136-145) 134 mmol/L (136-145) Potassium Level 3.5 mmol/L (3.5-5.1) 3.3 mmol/L (3.5-5.1) Chloride Level 99 mmol/L (98-107) 98 mmol/L (98-107) Carbon Dioxide Level 28 mmol/L (21-32) 25 mmol/L (21-32) Anion Gap 10 (6-14) 11 (6-14) Blood Urea Nitrogen 21 mg/dL (7-20) 11 mg/dL (7-20) Creatinine 0.6 mg/dL (0.6-1.0) 0.6 mg/dL (0.6-1.0) Estimated GFR (Cockcroft-Gault) 113.8 113.8 Glucose Level 85 mg/dL (70-99) 98 mg/dL (70-99) Calcium Level 8.1 mg/dL (8.5-10.1) 9.0 mg/dL (8.5-10.1) Magnesium Level 2.4 mg/dL (1.8-2.4) Laboratory Tests Test 08/02/19 04:03 White Blood Count 8.9 x10^3/uL (4.0-11.0) Red Blood Count 4.99 x10^6/uL (3.50-5.40) Hemoglobin 14.1 g/dL (12.0-15.5) Hematocrit 41.0 % (36.0-47.0) Mean Corpuscular Volume 82 fL (79-100) Mean Corpuscular Hemoglobin 28 pg (25-35) Mean Corpuscular Hemoglobin Concent 34 g/dL (31-37) Red Cell Distribution Width 13.7 % (11.5-14.5) Platelet Count 352 x10^3/uL (140-400) Neutrophils (%) (Auto) 61 % (31-73) Lymphocytes (%) (Auto) 23 % (24-48) Monocytes (%) (Auto) 14 % (0-9) Eosinophils (%) (Auto) 2 % (0-3) Basophils (%) (Auto) 1 % (0-3) Neutrophils # (Auto) 5.4 x10^3/uL (1.8-7.7) Lymphocytes # (Auto) 2.0 x10^3/uL (1.0-4.8) Monocytes # (Auto) 1.2 x10^3/uL (0.0-1.1) Eosinophils # (Auto) 0.2 x10^3/uL (0.0-0.7) Basophils # (Auto) 0.1 x10^3/uL (0.0-0.2) Sodium Level 134 mmol/L (136-145) Potassium Level 3.3 mmol/L (3.5-5.1) Chloride Level 98 mmol/L (98-107) Carbon Dioxide Level 25 mmol/L (21-32) Anion Gap 11 (6-14) Blood Urea Nitrogen 11 mg/dL (7-20) Creatinine 0.6 mg/dL (0.6-1.0) Estimated GFR (Cockcroft-Gault) 113.8 Glucose Level 98 mg/dL (70-99) Calcium Level 9.0 mg/dL (8.5-10.1) Magnesium Level 2.4 mg/dL (1.8-2.4) Assessment/Plan s/p VIH advance diet drain teaching, FU in clinic next week home if lunch tolerated Justicifation of Admission Dx: Justifications for Admission: Justification of Admission Dx: Comment: (incarcerated umbilical hernia) [employer]IVE [employer] Aug 02, 2019 10:50
[2019-08-02 11:00] VITALS: BP 128/88
[2019-08-02] MEDS ORDERED: HYDROcodone/APAP 5/325MG 1 TAB TABLET PO PRN (11:00)
[2019-08-02] MEDS ORDERED: HYDR-2761 PO (11:23)
[2019-08-02] MEDS ORDERED: MONT10TA49 PO (11:23)
--- NOTE | 2019-08-02 11:29 | PDOC3 ---
Discharge Summary Visit Information Date of Admission: Jul 30, 2019 Date of Discharge: Aug 02, 2019 Admitting Diagnosis: Incarcerated umbilical hernia Final Diagnosis Incarcerated umbilical hernia Brief Hospital Course Allergies Allergies Coded Allergies Type Severity Reaction Last Updated Verified No Known Drug Allergies 07/30/19 No Vital Signs Vital Signs Date Time Temp Pulse Resp B/P (MAP) Pulse Ox O2 Delivery O2 Flow Rate FiO2 08/02/19 11:00 97.8 46 18 128/88 (101) 96 Room Air 97.8 Lab Results Laboratory Tests Test 08/01/19 04:30 08/02/19 04:03 White Blood Count 9.9 x10^3/uL (4.0-11.0) 8.9 x10^3/uL (4.0-11.0) Red Blood Count 4.99 x10^6/uL (3.50-5.40) 4.99 x10^6/uL (3.50-5.40) Hemoglobin 13.9 g/dL (12.0-15.5) 14.1 g/dL (12.0-15.5) Hematocrit 41.0 % (36.0-47.0) 41.0 % (36.0-47.0) Mean Corpuscular Volume 82 fL (79-100) 82 fL (79-100) Mean Corpuscular Hemoglobin 28 pg (25-35) 28 pg (25-35) Mean Corpuscular Hemoglobin Concent 34 g/dL (31-37) 34 g/dL (31-37) Red Cell Distribution Width 14.0 % (11.5-14.5) 13.7 % (11.5-14.5) Platelet Count 298 x10^3/uL (140-400) 352 x10^3/uL (140-400) Neutrophils (%) (Auto) 68 % (31-73) 61 % (31-73) Lymphocytes (%) (Auto) 20 % (24-48) 23 % (24-48) Monocytes (%) (Auto) 12 % (0-9) 14 % (0-9) Eosinophils (%) (Auto) 1 % (0-3) 2 % (0-3) Basophils (%) (Auto) 1 % (0-3) 1 % (0-3) Neutrophils # (Auto) 6.7 x10^3/uL (1.8-7.7) 5.4 x10^3/uL (1.8-7.7) Lymphocytes # (Auto) 1.9 x10^3/uL (1.0-4.8) 2.0 x10^3/uL (1.0-4.8) Monocytes # (Auto) 1.1 x10^3/uL (0.0-1.1) 1.2 x10^3/uL (0.0-1.1) Eosinophils # (Auto) 0.1 x10^3/uL (0.0-0.7) 0.2 x10^3/uL (0.0-0.7) Basophils # (Auto) 0.1 x10^3/uL (0.0-0.2) 0.1 x10^3/uL (0.0-0.2) Sodium Level 137 mmol/L (136-145) 134 mmol/L (136-145) Potassium Level 3.5 mmol/L (3.5-5.1) 3.3 mmol/L (3.5-5.1) Chloride Level 99 mmol/L (98-107) 98 mmol/L (98-107) Carbon Dioxide Level 28 mmol/L (21-32) 25 mmol/L (21-32) Anion Gap 10 (6-14) 11 (6-14) Blood Urea Nitrogen 21 mg/dL (7-20) 11 mg/dL (7-20) Creatinine 0.6 mg/dL (0.6-1.0) 0.6 mg/dL (0.6-1.0) Estimated GFR (Cockcroft-Gault) 113.8 113.8 Glucose Level 85 mg/dL (70-99) 98 mg/dL (70-99) Calcium Level 8.1 mg/dL (8.5-10.1) 9.0 mg/dL (8.5-10.1) Magnesium Level 2.4 mg/dL (1.8-2.4) Laboratory Tests Test 08/02/19 04:03 White Blood Count 8.9 x10^3/uL (4.0-11.0) Red Blood Count 4.99 x10^6/uL (3.50-5.40) Hemoglobin 14.1 g/dL (12.0-15.5) Hematocrit 41.0 % (36.0-47.0) Mean Corpuscular Volume 82 fL (79-100) Mean Corpuscular Hemoglobin 28 pg (25-35) Mean Corpuscular Hemoglobin Concent 34 g/dL (31-37) Red Cell Distribution Width 13.7 % (11.5-14.5) Platelet Count 352 x10^3/uL (140-400) Neutrophils (%) (Auto) 61 % (31-73) Lymphocytes (%) (Auto) 23 % (24-48) Monocytes (%) (Auto) 14 % (0-9) Eosinophils (%) (Auto) 2 % (0-3) Basophils (%) (Auto) 1 % (0-3) Neutrophils # (Auto) 5.4 x10^3/uL (1.8-7.7) Lymphocytes # (Auto) 2.0 x10^3/uL (1.0-4.8) Monocytes # (Auto) 1.2 x10^3/uL (0.0-1.1) Eosinophils # (Auto) 0.2 x10^3/uL (0.0-0.7) Basophils # (Auto) 0.1 x10^3/uL (0.0-0.2) Sodium Level 134 mmol/L (136-145) Potassium Level 3.3 mmol/L (3.5-5.1) Chloride Level 98 mmol/L (98-107) Carbon Dioxide Level 25 mmol/L (21-32) Anion Gap 11 (6-14) Blood Urea Nitrogen 11 mg/dL (7-20) Creatinine 0.6 mg/dL (0.6-1.0) Estimated GFR (Cockcroft-Gault) 113.8 Glucose Level 98 mg/dL (70-99) Calcium Level 9.0 mg/dL (8.5-10.1) Magnesium Level 2.4 mg/dL (1.8-2.4) Brief Hospital Course Ms Trejo is a 33 yo F w/ PMHx obesity who came to [facility] ED on 07/29 c/o abdominal pain, nausea and vomiting for the last few days. She has had a l/s cholecystectomy and umbilical hernia repair in the past. CT done at the [facility] showed an umbilical hernia creating a small bowel obstruction. 07/30: To OR for Primary repair of recurrent ventral incisional hernia, partial omentectomy. 07/31: Afebrile overnight. Advance to clears this morning. No BM as of yet she is a little short of breath and wheezing. Improved with her as needed albuterol. Afebrile. No leukocytosis, K3.3. Slept well no overnight events. Tolerated liquid diet well, advanced per surgery, passing flatus. No dysuria no shortness of breath no chest pain no calf tenderness. Had a bowel movement with no pain. Consults: General surgery Problem list: SBO Allergic rhinitis Moderate persistent asthma - on symbicort and prn albuterol Obesity Leukocytosis Hyponatremia Incarcerated periumbilical abdominal wall hernia containing a loop of the distal ileum Nonobstructing right renal calculi. Mild right renal hydronephrosis due to ureteropelvic junction obstruction, stable to prior imaging. Plan: drain teaching, FU in clinic next week with surgery Greater than 30 minutes spent on d/c home Discharge Information Condition at Discharge: Improved Follow Up: Weeks Disposition/Orders: D/C to Home Scheduled Budesonide/Formoterol Fumarate (Budesonide-Formoterol 160-4.5) 10.2 Gm Hfa.aer.ad, 2 PUFF INH BID for ASTHMA, (Reported) Entered as Reported by: RAMBO SMALLWOOD on 07/30/191827 Last Taken: UNKNOWN on Unknown Date & Time Last Action: Converted on 08/01/19 1153 by JIMBO CHANEY MD Loratadine/Pseudoephedrine (Claritin-D 24 Hour Tablet) 1 Each Tab.er.24h, 1 TAB PO DAILY for SEASONAL ALLERGIES for 10 Days, #10 Ref 0 (Reported) Entered as Reported by: RAMBO SMALLWOOD on 07/30/191827 Last Taken: UNKNOWN on Unknown Date & Time Last Action: Reviewed on 07/30/191828 by RAMBO SMALLWOOD Montelukast Sodium (Montelukast Sodium Tablet ) 10 Mg Tablet, 10 MG PO QHS for Asthma/allergies for 90 Days, #90 Ref 3 Prescribed by: JIMBO CHANEY MD on 08/02/19 1123 Scheduled PRN Hydrocodone Bit/Acetaminophen (Hydrocodone-Apap 5-325 ) 1 Tab Tablet, 1 TAB PO PRN Q6HRS PRN for PAIN for 6 Days, #16 Prescribed by: JIMBO CHANEY MD on 08/02/19 1124 Discontinued Medications Vits W-Ca,Fe,Fa(<1MG) ( Vitamins) 1 Each Tablet, 1 TAB PO DAILY, #90 Ref 3 (Reported) Entered as Reported by: ANTONIA MATOS on 06/07/14 0954 Last Action: Discontinued on 07/30/19 1444 by TIMMY GUDIRY Justicifation of Admission Dx: Justifications for Admission: Justification of Admission Dx: Comment: (incarcerated umbilical hernia) JIMBO CHANEY MD Aug 02, 2019 11:29
--- NOTE | 2019-08-02 13:39 | NUR ---
Discharge Note: TERI SIMS [place]ER[place] Discharge instructions and discharge home medications reviewed with Patient and a copy given. All questions have been answered and understanding verbalized. The following instructions and handouts were given: information about follow up appointments, medications, wound care, drain care, etc. Discontinued lines and drains: IV line in left hand removed, catheter tip intact. Patient discharged to home with self care with family member, wheelchair used for mobility to discharge vehicle.
--- NOTE | 2019-08-02 17:06 | PATHOLOGY ---
[facility] Accession Number: [id number] . 01 Material submitted: . hernia - HERNIA SAC AND INCARCERATED CONTENTS . 01 Clinical history: . Incarcerated umbilical hernia . 02 Diagnosis: Segments of fibromembranous and adipose tissue and omental adipose tissue, umbilical hernia repair: - Hernia sac showing focal reactive fibrosis and focal congestion and recent hemorrhage. (JPM:maria m; 08/02/2019) QMS 08/02/2019 1659 Local . 02 Electronically signed: . Donald Harman MD, Pathologist NPI- [id number] . 01 Gross description: . The specimen is received in formalin, labeled "Dominga Trejo, hernia sac and incarcerated contents". Received is a segment of fibromembranous tissue measuring 11.1 x 3.3 x 1.5 cm in greatest dimensions. Also received within the specimen container is a large amount of yellow-pineda omentum measuring 20.5 x 13.7 x 5.8 cm in aggregate dimensions. No distinct nodules or lesions are noted grossly. The specimen is submitted representatively in cassette A1. (CAA; 08/01/2019) QAC/QAC 08/01/2019 1701 Local . 02 Pathologist provided ICD-10: K44.9 . 02 CPT . 214483 Specimen Comment: A courtesy copy of this report has been sent to [phone] Specimen Comment: [phone], Specimen Comment: Report sent to ,DR CABRERA / DR MURPHY Performed at: [address], [place], [place] [id number] MD Jonathan Whitlock MD Phone: [phone] Performed at: 02 [facility] [address] [place], [place] [id number] MD Donald Harman MD Phone: [phone]
== END 2019-08-02 13:40 | disposition home or self-care (01) | DRG 354 ==
LOC: 4 NORTH 14:36
PROVIDERS: ADMIT Family Medicine; ATTEND Family Medicine
PROC: 0DBU0ZZ Excision of Omentum, Open Approach (ICD-10-PCS; 2019-07-30)
PROC: 0WQF0ZZ Repair Abdominal Wall, Open Approach (ICD-10-PCS; principal; 2019-07-30 15:00)
DX: K43.0 Incisional hernia with obstruction, without gangrene (principal); E87.1 Hypo-osmolality and hyponatremia; N13.1 Hydronephrosis with ureteral stricture, not elsewhere classified; N13.2 Hydronephrosis with renal and ureteral calculous obstruction; K42.0 Umbilical hernia with obstruction, without gangrene; D72.829 Elevated white blood cell count, unspecified; E66.9 Obesity, unspecified; J45.40 Moderate persistent asthma, uncomplicated; Z83.3 Family history of diabetes mellitus; K21.9 Gastro-esophageal reflux disease without esophagitis; Z68.38 Body mass index [BMI] 38.0-38.9, adult; Z20.828 Contact with and (suspected) exposure to other viral communicable diseases
CPT/HCPCS: 36415; 80048; 83735; 85025; 88302; 94640; 94760; A7015; J0330; J0690; J1100; J1170; J1650; J1885; J2405; J2704; J2710; J3010; J3480; J3490; J7060; J7120; G0378; J7613; J7626

== ENCOUNTER 2020-01-10 05:53 | Inpatient (IN) | payer OTHER ==
[~2020-01-10] VITALS: Ht 160 cm; Wt 104.5 kg
--- NOTE | 2020-01-10 05:00 | NUR ---
The patient, GENI SIMS, 34 y/o, F admitted by AICHA COLEMAN MD, was given written information regarding hospital policies, unit procedures and contact persons. RN received report from Edie CRUZ from [place] at 0500, patient was then transported from [place] to [place] [address] via EMS at 0550. Patients VSS, afebrile, and no pain reported at that time. Bed is in lowest locked position and the call light is within reach. Valuables were checked and left in the room with the patient. RN will continue to monitor the patient closely.
[~2020-01-10 05:53] MED LIST changes: +BUDE10.26 INH; +HYDR-2761 PO; +LORA-627 PO; +MONT10TA49 PO
[2020-01-10 06:00] VITALS: BP 121/75
[2020-01-10] MEDS ORDERED: ALBUTEROL SULFATE 2.5 MG/3 ML NEBU. NEB PRN (07:45)
[2020-01-10] MEDS ORDERED: fentaNYL PF VIAL 100 MCG/2 ML VIAL IVP PRN (07:45)
[2020-01-10] MEDS ORDERED: ONDANSETRON PF 4 MG/2 ML VIAL. IVP PRN (07:45)
--- NOTE | 2020-01-10 08:41 | PDOC2 ---
CLIVE LIANG LOGISTICS ENGINEER 01/10/20 0841: CONSULT Date of Consult Date of Consult DATE: 01/10/20 TIME: 08:36 Reason for Consult Reason for Consult: sbo Referring Physician Referring Physician: Dr rushing Identification/Chief Complaint Chief Complaint abdominal pain Source Source: Chart review, Patient History of Present Illness Reason for Visit: Abdominal crapping and nausea on , Thursday, Thursday felt better weak, d id have diarrhea x 4-5 on Thursday. Thursday improved and Thursday started feeling crapping pain again. Er vomited x 1. is currently passing flatus and no abdominal pain. Past Medical History Pulmonary: Asthma GI: GERD Renal/: No pertinent hx Past Surgical History Past Surgical History: Cholecystectomy, Hernia Repair Family History Family History: Other (noncontributory to current illness) Social History No ALCOHOL: rare Drugs: None Lives: with Family Current Medications Current Medications Current Medications Fentanyl Citrate (Fentanyl 2ml Vial) 50 mcg PRN Q3HRS PRN IVP PAIN; Start 01/10/20 at 07:45 Ondansetron HCl (Zofran) 4 mg PRN Q6HRS PRN IVP NAUSEA/VOMITING; Start 01/10/20 at 07:45 Sodium Chloride 1,000 ml @ 100 mls/hr Q10H IV ; Start 01/10/20 at 07:45 Albuterol Sulfate (Ventolin Neb Soln) 2.5 mg PRN Q4HRS PRN NEB SHORTNESS OF BREATH; Start 01/10/20 at 07:45 Active Scripts Active Reported Claritin-D 24 Hour Tablet (Loratadine/Pseudoephedrine) 1 Each Tab.er.24h 1 Tab PO DAILY 10 Days Budesonide-Formoterol 160-4.5 (Budesonide/Formoterol Fumarate) 10.2 Gm Hfa. aer.ad 2 Puff INH BID Allergies Allergies: Coded Allergies: No Known Drug Allergies (Unverified , 07/30/19) ROS General: No: Chills, Other (fevers ) PSYCHOLOGICAL ROS: No: Anxiety, Depression Eyes: No Blurry vision, No Double vision HEENT: No: Heacaches, Sore Throat Hematological and Lymphatic: No: Bleeding Problems, Blood Clots Respiratory: No: Cough, Shortness of breath Cardiovascular: No Chest Pain, No Palpitations Gastrointestinal: Yes Other (see hpi) Genitourinary: No Dysuria, No Retention Musculoskeletal: No Joint Pain, No Muscle Pain Neurological: No Impaired Coord/balance, No Numbness/Tingling Skin: No Pruritus, No Rash Physical Exam General: Alert, Oriented X3, Cooperative HEENT: Atraumatic, PERRLA, Other (ng in place no drainage ) Lungs: Clear to auscultation, Normal air movement Heart: Regular rate, Normal S1, Normal S2 Abdomen: Soft, No tenderness, Other (obese abdomen ) Extremities: No clubbing, No cyanosis Skin: No rashes, No breakdown Neuro: Normal gait, Normal speech Psych/Mental Status: Mental status NL, Mood NL MUSCULOSKELETAL: No deformity, No swelling Vitals VITALS Vital Signs Date Time Temp Pulse Resp B/P (MAP) Pulse Ox O2 Delivery O2 Flow Rate FiO2 01/10/20 07:54 Room Air 01/10/20 06:00 99.1 93 19 121/75 (90) 98 99.1 Labs Labs Laboratory Tests Test 01/10/20 07:05 SARS-CoV-2 Antigen (Rapid) Negative (NEGATIVE) Laboratory Tests Test 01/10/20 07:05 SARS-CoV-2 Antigen (Rapid) Negative (NEGATIVE) Assessment/Plan Assessment/Plan SBO vs ileus--with diarrhea thursday, now with flatus and improved will check plain films, if improved clamp KIAH LION MD 01/10/20 1051: CONSULT Assessment/Plan Assessment/Plan Pt seen and examined. Agree with Ms. Liang's note Pt without c/o, passing stools abd soft, ND, NTTP favor enteritis will check KUB, cont NGT Thanks for consult! CLIVE LIANG APRN Jan 10, 2020 08:41 KIAH BOBO MD Jan 10, 2020 10:51
--- NOTE | 2020-01-10 09:36 | NUR ---
SW following. Discussed with RN, pt from home, room air, NPO, Rapid COVID-19 negative, NG tube. Per surgery - check plain films, if improved clamp NG. RN advised no SW needs at this time. SW will continue to follow.
--- NOTE | 2020-01-10 09:57 | HP ---
ADMIT DATE: 01/10/2020 HISTORY OF PRESENT ILLNESS: The patient is a 34-year-old female patient who presented to the Emergency Room of [facility] with a complaint of nausea, vomiting and abdominal pain. Her pain started last Thursday, did have some mild improvement on Thursday and got much worse on Thursday evening. The pain is localized to the mid abdomen, any movement makes the pain worse. She said she had had a bowel movement at [facility] and she continued to pass some gas. She apparently has a history of prior bowel obstruction secondary to umbilical hernia that was surgically repaired by Dr. Figueredo in 08/2019. She was extensively evaluated in the Emergency Room and has had a CT scan of the abdomen and pelvis, which showed the patient has several fluid-filled mildly dilated loops of small bowel, stool and gas throughout the colon finding probably represents adynamic ileus, nonspecific enteritis or potentially partial obstruction. She does have a small amount of fat and fluid within the patient has a ventral hernia, but no loops of bowels, unchanged mild chronic right hydronephrosis and nonobstructing renal calculi. The patient apparently has had an NG tube placed successfully and was transferred to [facility] to continue with NG tube to intermittent suction and consult the surgical team for further evaluation and treatment. PAST MEDICAL HISTORY: Significant for bronchial asthma, hypertension, nephrolithiasis, hyperlipidemia, gastroesophageal reflux disease, and diabetes as well as frequent urinary tract infection. PAST SURGICAL HISTORY: Significant for periumbilical hernia repair and cholecystectomy. ALLERGIES: She has no known drug allergies. MEDICATIONS: She is on inhaler, probably albuterol. She also used [id number] Tylenol and ibuprofen as needed. FAMILY HISTORY: She has 1 older sister, who is healthy. Father at age of 66 because of myocardial infarction. Mother in her early 60s because of pulmonary embolism. SOCIAL HISTORY: She is , has 6 children. She does not smoke, drinks alcohol occasionally. Does not use any drugs and she works at [employer]. PHYSICAL EXAMINATION: GENERAL: On arrival to the Emergency Room, she was in pain, but there was no pallor, jaundice, cyanosis or thyromegaly. No jugular venous distention or limb edema. VITAL SIGNS: Her heart rate was 108, blood pressure was 179/119, temperature was 98.2, respiratory rate was 18, and oxygen saturation 100% on room air. HEAD, EYES, EARS, NOSE AND THROAT: Showed normocephalic, atraumatic. NECK: Supple. CARDIAC: Normal first and second heart sounds. No gallop, rub or murmur. CHEST: Clear to auscultation. No crepitation or rhonchi. ABDOMEN: Distended, soft, nontender. There is no guarding or rigidity. No organomegaly. All hernial orifice intact. Bowel sounds are audible. LABORATORY DATA: Showed a white cell count 14,000, hemoglobin 14, hematocrit 43, MCV 83 and platelet count 319,000. Her chemistry showed a serum sodium 135, potassium 4.1, chloride 99, bicarbonate 27, anion gap of 9, BUN 18, creatinine 0.6, estimated GFR was 113 mL per minute. Her glucose 111. Lactic acid was 1.9, calcium was 9.5. Total bilirubin, AST, ALT, alkaline phosphatase were normal. CK was 100. Total protein 8.2, albumin was 4.1. Her lipase was 72. Her prothrombin time, INR and aPTT are all normal. Her urinalysis essentially showed that urine was yellow, hazy, pH of 7, specific gravity of 1.020. The urine was negative for protein, glucose, ketones, there was moderate amount of blood, positive for nitrite and there was small amount of leukocyte esterase, 6-10 rbc's, 20-40 wbc's, and many bacteria. Her urine test was negative and urine drug screen was negative. Her acute abdomen series showed the patient has multiple fluid filled loops of dilated bowel with air fluid levels with small amount of gas scattered throughout the colon. This may represent adynamic ileus or obstruction and again she did have a CT scan of the abdomen, which showed several fluid-filled mildly dilated loops of small bowel, stool and gas throughout the colon finding probably represents adynamic ileus, nonspecific enteritis potentially partial obstruction. She also notes that she has small amount of fat and fluid within the patient's ventral hernia, but no loops of bowel, unchanged mild chronic right hydronephrosis and nonobstructive renal calculi. ASSESSMENT AND PLAN: Basically, the patient was started on IV fluid, kept n.p.o., had an NG tube to intermittent suction. We will obviously monitor her lab work and we have already consulted the surgical team for further evaluation and treatment. IACHA COLEMAN MD DR: Courtney JOB#: [id number] / [id number]
[2020-01-10] MEDS ORDERED: PHENOL ORAL SPRAY 177ML BOTTLE. PO PRN (10:30)
[2020-01-10 11:00] VITALS: BP 117/72
[2020-01-10] MEDS: IV NORMAL SALINE 1000ML BAG 1,000 ML IV SCH ×2 (11:04→20:32)
--- NOTE | 2020-01-10 11:30 | RAD ---
Acute abdominal series to include an AP chest radiograph 01/10/2020 CLINICAL HISTORY: Small bowel obstruction. Two AP erect digital radiographs of the chest were obtained. Supine and erect AP digital radiographs abdomen/pelvis were obtained. Additional comparison is made to the patient's CT scan of the abdomen and pelvis performed earlier today. Comparison study is dated earlier today at 0240 hours. A NG tube is unchanged in position. Surgical clips overlie the right upper quadrant of the abdomen consistent with a cholecystectomy. The cardiac silhouette is normal in size. The thoracic aorta is mildly tortuous. No acute pulmonary infiltrate is seen. No pleural effusion or pneumothorax is noted. Oral contrast material is seen throughout the majority of the colon. Contrast is seen within the urinary bladder. Air distention of both small and large bowel loops is seen which is unchanged from the previous examination. No free air is noted. No radiopaque calculus is seen. The osseous structures are unchanged. IMPRESSION: Air distention of both small and large bowel loops is seen, unchanged. Electronically signed by: Ike Mccoy MD (01/10/2020 11:27 AM) [id number]
[2020-01-10 15:00] VITALS: BP 138/86
[2020-01-10 19:00] VITALS: BP 123/76
[2020-01-10 22:53] VITALS: BP 132/83
[2020-01-11 03:00] VITALS: BP 124/74
[2020-01-11] MEDS: IV NORMAL SALINE 1000ML BAG 1,000 ML IV SCH ×2 (06:12→13:45)
[2020-01-11 07:25] LABS: RED BLOOD COUNT 4.81 x10^6/uL (3.50-5.40); RED CELL DISTRIBUTION WIDTH 13.8 % (11.5-14.5); WHITE BLOOD COUNT 8.1 x10^3/uL (4.0-11.0)
[2020-01-11 07:31] LABS: ALBUMIN 3.3 g/dL (3.4-5.0); ALBUMIN/GLOBULIN RATIO 0.8 (1.0-1.7); CALCIUM 8.3 mg/dL (8.5-10.1); CREATININE 0.5 mg/dL (0.6-1.0); GFR 139.6; POTASSIUM 3.6 mmol/L (3.5-5.1); TOTAL BILIRUBIN 0.6 mg/dL (0.2-1.0); TOTAL PROTEIN 7.3 g/dL (6.4-8.2)
[2020-01-11 07:51] VITALS: BP 137/88
--- NOTE | 2020-01-11 09:08 | PDOC ---
CLIVE FOX POLICE GUARD 01/11/20 0908: SURGICAL PROGRESS NOTE DATE: 01/11/20 TIME: 09:06 Subjective feels well no nausea, no pain + flatus tolerated NG clamping , taking clears Vital Signs Vital Signs Date Time Temp Pulse Resp B/P (MAP) Pulse Ox O2 Delivery O2 Flow Rate FiO2 01/11/20 07:51 98.0 82 16 137/88 (104) 97 Room Air 98.0 I&O Intake and Output 01/11/20 07:00 Intake Total 2140 ml Balance 2140 ml Intake Oral 240 ml IV Total 700 ml Other 1200 ml # Voids 2 General: Alert, Oriented X3, Cooperative HEENT: Other (Ng clamped ) Abdomen: Soft, No tenderness Labs Laboratory Tests Test 01/10/20 07:05 01/11/20 06:45 Coronavirus (PCR) Not detected (Not Detected) SARS-CoV-2 Antigen (Rapid) Negative (NEGATIVE) White Blood Count 8.1 x10^3/uL (4.0-11.0) Red Blood Count 4.81 x10^6/uL (3.50-5.40) Hemoglobin 13.0 g/dL (12.0-15.5) Hematocrit 39.0 % (36.0-47.0) Mean Corpuscular Volume 81 fL (79-100) Mean Corpuscular Hemoglobin 27 pg (25-35) Mean Corpuscular Hemoglobin Concent 33 g/dL (31-37) Red Cell Distribution Width 13.8 % (11.5-14.5) Platelet Count 287 x10^3/uL (140-400) Sodium Level 135 mmol/L (136-145) Potassium Level 3.6 mmol/L (3.5-5.1) Chloride Level 101 mmol/L (98-107) Carbon Dioxide Level 26 mmol/L (21-32) Anion Gap 8 (6-14) Blood Urea Nitrogen 11 mg/dL (7-20) Creatinine 0.5 mg/dL (0.6-1.0) Estimated GFR (Cockcroft-Gault) 139.6 BUN/Creatinine Ratio 22 (6-20) Glucose Level 83 mg/dL (70-99) Calcium Level 8.3 mg/dL (8.5-10.1) Total Bilirubin 0.6 mg/dL (0.2-1.0) Aspartate Amino Transf (AST/SGOT) 33 U/L (15-37) Alanine Aminotransferase (ALT/SGPT) 38 U/L (14-59) Alkaline Phosphatase 43 U/L (46-116) Total Protein 7.3 g/dL (6.4-8.2) Albumin 3.3 g/dL (3.4-5.0) Albumin/Globulin Ratio 0.8 (1.0-1.7) Laboratory Tests Test 01/11/20 06:45 White Blood Count 8.1 x10^3/uL (4.0-11.0) Red Blood Count 4.81 x10^6/uL (3.50-5.40) Hemoglobin 13.0 g/dL (12.0-15.5) Hematocrit 39.0 % (36.0-47.0) Mean Corpuscular Volume 81 fL (79-100) Mean Corpuscular Hemoglobin 27 pg (25-35) Mean Corpuscular Hemoglobin Concent 33 g/dL (31-37) Red Cell Distribution Width 13.8 % (11.5-14.5) Platelet Count 287 x10^3/uL (140-400) Sodium Level 135 mmol/L (136-145) Potassium Level 3.6 mmol/L (3.5-5.1) Chloride Level 101 mmol/L (98-107) Carbon Dioxide Level 26 mmol/L (21-32) Anion Gap 8 (6-14) Blood Urea Nitrogen 11 mg/dL (7-20) Creatinine 0.5 mg/dL (0.6-1.0) Estimated GFR (Cockcroft-Gault) 139.6 BUN/Creatinine Ratio 22 (6-20) Glucose Level 83 mg/dL (70-99) Calcium Level 8.3 mg/dL (8.5-10.1) Total Bilirubin 0.6 mg/dL (0.2-1.0) Aspartate Amino Transf (AST/SGOT) 33 U/L (15-37) Alanine Aminotransferase (ALT/SGPT) 38 U/L (14-59) Alkaline Phosphatase 43 U/L (46-116) Total Protein 7.3 g/dL (6.4-8.2) Albumin 3.3 g/dL (3.4-5.0) Albumin/Globulin Ratio 0.8 (1.0-1.7) Assessment/Plan SBO vs ileus remove NG soft diet Justicifation of Admission Dx: Justifications for Admission: Justification of Admission Dx: Comment: KIAH BOBO MD 01/11/20 1437: SURGICAL PROGRESS NOTE Assessment/Plan Pt seen and examined. Agree with Ms. Fox's note Pt feels better, chucky PO abd soft doing well CLIVE ARCEO APRN Jan 11, 2020 09:08 KIAH BOBO MD Jan 11, 2020 14:37
--- NOTE | 2020-01-11 09:20 | NUR ---
SW following. Discussed with RN, pt from home, room air. NG being removed, and pt advanced to GI soft. RN advised no SW needs at this time. RN anticipates possible discharge home today if tolerates diet. SW will continue to follow.
[2020-01-11 11:10] VITALS: BP 129/79
--- NOTE | 2020-01-11 15:06 | NUR ---
Pt discharged home with self care. Discharge instructions discussed. Pt verbalized understanding. IV removed. Pt ambulated to main entrance and was secured in car with .
== END 2020-01-11 15:08 | disposition home or self-care (01) | DRG 389 ==
LOC: 4 NORTH 05:53
PROVIDERS: ADMIT Internal Medicine; ATTEND Internal Medicine
PROC: 0D9670Z Drainage of Stomach with Drainage Device, Via Natural or Artificial Opening (ICD-10-PCS; principal; 2020-01-10)
DX: K56.699 Other intestinal obstruction unspecified as to partial versus complete obstruction (principal); N13.30 Unspecified hydronephrosis; K52.9 Noninfective gastroenteritis and colitis, unspecified; K21.9 Gastro-esophageal reflux disease without esophagitis; J45.909 Unspecified asthma, uncomplicated; I10 Essential (primary) hypertension; E78.5 Hyperlipidemia, unspecified; E11.9 Type 2 diabetes mellitus without complications; Z20.828 Contact with and (suspected) exposure to other viral communicable diseases; Z87.442 Personal history of urinary calculi; Z87.440 Personal history of urinary (tract) infections; Z90.49 Acquired absence of other specified parts of digestive tract; Z82.49 Family history of ischemic heart disease and other diseases of the circulatory system
CPT/HCPCS: 36415; 74022; 80053; 85027; 87426; J7030; U0003; G0378